=== PATIENT | male | born 1980 | race Caucasian/White ===

== ENCOUNTER 2021-04-12 13:25 | Emergency (ER) | payer BC, OTHER ==
[~2021-04-12] VITALS: Ht 182.9 cm; Wt 80.9 kg
[~2021-04-12 13:25] MED LIST: ATOR1TAB21 PO; METO50TA7 PO; MIRT1TAB PO; OMEP1CAP73 PO; OXAZ30CA2 PO; VENL150T14 PO
[2021-04-12] MEDS ORDERED: MULTIVITAMIN -ADULT INJECTION 10 ML, THIAMINE INJection 100 MG, FOLIC ACID 1 MG in NS 1... IV ONE (14:05)
[2021-04-12] MEDS ORDERED: BOOSTRIX/ADACEL VACCINE (DIPHTH/PERTUSS/ACELL/TETANUS) 0.5ML SYR IM ONE (14:10)
--- NOTE | 2021-04-12 14:50 | REPVR ---
PROCEDURE INFORMATION: Exam: CT Head Without Contrast Exam date and time: 04/12/2021 2:34 PM Age: 40 years old Clinical indication: Injury or trauma; Fall; Blunt trauma (contusions or hematomas) TECHNIQUE: Imaging protocol: Computed tomography of the head without contrast. Radiation optimization: All CT scans at this facility use at least one of these dose optimization techniques: automated exposure control; mA and/or kV adjustment per patient size (includes targeted exams where dose is matched to clinical indication); or iterative reconstruction. COMPARISON: No relevant prior studies available. FINDINGS: Brain: No acute intracranial hemorrhage, cerebral edema, or midline shift. Cerebral ventricles: No hydrocephalus. Paranasal sinuses: There is no acute sinusitis. Mastoid air cells: Visualized mastoid air cells are well aerated. Orbital cavity: Unremarkable as visualized. Bones/joints: No acute fracture. Soft tissues: Unremarkable. IMPRESSION: No acute intracranial abnormality. Electronically signed by: Sam Abad On 04/12/2021 14:50:28 PM
--- NOTE | 2021-04-12 15:05 | REPVR ---
PROCEDURE INFORMATION: Exam: CT Maxillofacial Without Contrast Exam date and time: 04/12/2021 2:34 PM Age: 40 years old Clinical indication: Injury or trauma; Fall; Blunt trauma (contusions or hematomas); Other: Unknown-pt had bruising around the left eye TECHNIQUE: Imaging protocol: Computed tomography images of the face without contrast. Radiation optimization: All CT scans at this facility use at least one of these dose optimization techniques: automated exposure control; mA and/or kV adjustment per patient size (includes targeted exams where dose is matched to clinical indication); or iterative reconstruction. COMPARISON: No relevant prior studies available. FINDINGS: Orbital cavity: Orbits are normal. Globes are unremarkable. Bones/joints: No acute fracture. Paranasal sinuses: Nodular mucosal thickening is present in the right maxillary sinus. The remaining paranasal sinuses are clear. Soft tissues: Minimal left malar and periorbital soft tissue swelling is present. IMPRESSION: No acute fracture or orbital injury Electronically signed by: Sam Abad On 04/12/2021 15:04:49 PM
--- NOTE | 2021-04-12 15:11 | REPVR ---
PROCEDURE INFORMATION: Exam: CT Cervical Spine Without Contrast Exam date and time: 04/12/2021 2:34 PM Age: 40 years old Clinical indication: Injury or trauma; Fall; Blunt trauma TECHNIQUE: Imaging protocol: Computed tomography images of the cervical spine without contrast. Radiation optimization: All CT scans at this facility use at least one of these dose optimization techniques: automated exposure control; mA and/or kV adjustment per patient size (includes targeted exams where dose is matched to clinical indication); or iterative reconstruction. COMPARISON: No relevant prior studies available. FINDINGS: Bones/joints: No acute fracture. Normal alignment. Discs/Spinal canal/Neural foramina: No significant spinal canal stenosis or neural foraminal narrowing. Lungs: Lung apices are clear. Soft tissues: Unremarkable. IMPRESSION: No acute findings. Electronically signed by: Sam Abad On 04/12/2021 15:10:55 PM
[2021-04-12] MEDS ORDERED: LORazepam 2 MG/ML VIAL IV STA (15:14)
[2021-04-12 15:40] LABS: AMPHETAMINES LEVEL URINE NEGATIVE (NEGATIVE); BARBITURATES URINE NEGATIVE (NEGATIVE); BENZODIAZEPINES URINE NEGATIVE (NEGATIVE); CANNABINOIDS URINE NEGATIVE (NEGATIVE); COCAINE METABOLITE URINE NEGATIVE (NEGATIVE); METHADONE URINE NEGATIVE (NEGATIVE); OPIATES URINE NEGATIVE (NEGATIVE); PHENCYCLIDINE URINE NEGATIVE (NEGATIVE)
[2021-04-12 15:50] LABS: ACETAMINOPHEN LEVEL < 2.0 UG/ML (10.0-30.0); ALBUMIN 3.9 GM/DL (3.2-5.2); ALT/SGPT 32 U/L (12-78); BILIRUBIN,DIRECT 0.2 MG/DL (0.0-0.2); BILIRUBIN,TOTAL 0.7 MG/DL (0.2-1.0); BLOOD UREA NITROGEN 9 MG/DL (7-18); CALCIUM LEVEL 8.6 MG/DL (8.5-10.1); CARBON DIOXIDE LEVEL 25 MEQ/L (21-32); CHLORIDE LEVEL 96 MEQ/L (98-107); CREATININE FOR GFR 0.72 MG/DL (0.70-1.30); GLOMERULAR FILTRATION RATE > 60.0 (>60); GLUCOSE, FASTING 133 MG/DL (70-100); POTASSIUM SERUM 3.4 MEQ/L (3.5-5.1); SODIUM LEVEL 133 MEQ/L (136-145); THYROID STIMULATING HORMONE 0.319 uIU/ML (0.358-3.740)
[2021-04-12 16:00] LABS: BASO # 0.1 10^3/uL (0.0-0.2); BASO % 1.2 % (0.0-1.0); EOS # 0.4 10^3/uL (0.0-0.5); EOS % 5.1 % (0.0-3.0); HEMATOCRIT 38.4 % (42.0-52.0); HEMOGLOBIN 14.2 g/dl (13.5-17.5); LYMPH # 2.4 10^3/uL (1.5-5.0); LYMPH % 31.9 % (24.0-44.0); MEAN CORPUSCULAR HEMOGLOBIN 30.5 pg (27.0-33.0); MEAN CORPUSCULAR VOLUME 82.6 fl (80.0-96.0); MONO # 0.5 10^3/uL (0.0-0.8); MONO % 6.9 % (2.0-8.0); NEUTROPHILS # 4.1 10^3/uL (1.5-8.5); NEUTROPHILS % 54.4 % (36.0-66.0); PLATELET COUNT, AUTOMATED 366 10^3/uL (150-450); RED BLOOD COUNT 4.65 10^6/uL (4.30-6.10); WHITE BLOOD COUNT 7.5 10^3/uL (4.0-10.0)
[2021-04-12] MEDS ORDERED: LORazepam 2 MG TAB PO PRN (16:00)
[2021-04-12 17:00] VITALS: BP 116/64
--- NOTE | 2021-04-13 15:45 | ECGEPIP ---
[facility] - ED Test Date: 2021-04-12 Pat Name: KENA CHAN Department: Room: - Gender: Male Lead Care Manager: ZAKI : 1980 Requested By: Jemima Newton Order Number: [id number] Reading MD: Negra Seals Measurements Intervals [place] Rate: 83 P: 9 SD: 154 QRS: -13 QRSD: 106 T: 54 QT: 390 QTc: 458 Interpretive Statements Normal sinus rhythm NSTTW abnormalities low voltage limb decreased rate 09/05/15 Electronically Signed on 04-13-2021 15:44:56 EDT by Negra Seals
== END 2021-04-12 18:02 | disposition left against medical advice (07) ==
LOC: M ED 13:25
DX: F10.129 Alcohol abuse with intoxication, unspecified (principal); Y90.1 Blood alcohol level of 20-39 mg/100 ml; I10 Essential (primary) hypertension; F33.9 Major depressive disorder, recurrent, unspecified; K21.9 Gastro-esophageal reflux disease without esophagitis; I25.2 Old myocardial infarction; F17.210 Nicotine dependence, cigarettes, uncomplicated; Z79.899 Other long term (current) drug therapy
CPT/HCPCS: 70450; 70486; 72125; 80048; 80076; 80143; 80307; 82077; 84443; 85025; 93005; 93041; 96365; 96366; 96375; 99284; J2060; J3411

== ENCOUNTER 2021-04-13 08:20 | Emergency (ER) | payer BC ==
[~2021-04-13] VITALS: Ht 182.9 cm; Wt 81.8 kg
[2021-04-13 09:45] VITALS: BP 126/83
== END 2021-04-13 09:55 | disposition left against medical advice (07) ==
LOC: EDBD 08:20 → M ED 08:20
DX: F10.129 Alcohol abuse with intoxication, unspecified (principal); Y90.1 Blood alcohol level of 20-39 mg/100 ml; I10 Essential (primary) hypertension; F33.9 Major depressive disorder, recurrent, unspecified; Z79.899 Other long term (current) drug therapy; F17.210 Nicotine dependence, cigarettes, uncomplicated

== ENCOUNTER → 2021-12-14 | Outpatient (REF) | payer OTHER | LOC: M LAB REF 16:09 | PROVIDERS: ATTEND Internal Medicine | DX: Z13.89 Encounter for screening for other disorder (principal) ==

== ENCOUNTER 2022-02-19 02:57 | Emergency (ER) | payer OTHER ==
[~2022-02-19] VITALS: Ht 182.9 cm; Wt 82.6 kg
[2022-02-19] MEDS ORDERED: GABA-282 PO (03:09)
[2022-02-19] MEDS ORDERED: ONDA4TAB6 PO (03:09)
[2022-02-19] MEDS ORDERED: SUBO8MIS SL (03:09)
[2022-02-19] MEDS ORDERED: BENA20TA PO (03:09)
[2022-02-19] MEDS ORDERED: ADDE20CA3 PO (03:09)
[2022-02-19] MEDS ORDERED: IBUP-1022 PO (06:06)
[2022-02-19 06:15] VITALS: BP 150/75
[2022-02-19] MEDS ORDERED: IBUPROFEN 800 MG TAB PO ONE (06:35)
== END 2022-02-19 06:46 | disposition home or self-care (01) ==
LOC: M ED 02:57
DX: S42.021A Displaced fracture of shaft of right clavicle, initial encounter for closed fracture (principal); T14.8XXA Other injury of unspecified body region, initial encounter; V19.88XA Pedal cyclist (driver) (passenger) injured in other specified transport accidents, initial encounter; Y92.410 Unspecified street and highway as the place of occurrence of the external cause; I10 Essential (primary) hypertension; K21.9 Gastro-esophageal reflux disease without esophagitis; Z79.899 Other long term (current) drug therapy; Z79.891 Long term (current) use of opiate analgesic

== ENCOUNTER → 2022-03-03 | Outpatient (CLI) | payer OTHER ==
[~2022-03-03] MED LIST changes: +ADDE20CA3 PO; +BENA20TA PO; +GABA-282 PO; +IBUP-1022 PO; +ONDA4TAB6 PO; +SUBO8MIS SL
== END ==
LOC: M SOG 14:11
PROVIDERS: ATTEND Orthopaedic Surgery
DX: S42.024A Nondisplaced fracture of shaft of right clavicle, initial encounter for closed fracture (principal)

== ENCOUNTER → 2022-04-06 | Outpatient (CLI) | payer OTHER | LOC: M SOG 13:14 | PROVIDERS: ATTEND Orthopaedic Surgery | DX: S42.001D Fracture of unspecified part of right clavicle, subsequent encounter for fracture with routine healing (principal) ==

== ENCOUNTER → 2022-05-10 | Outpatient (CLI) | payer OTHER | LOC: M SOG 09:02 | PROVIDERS: ATTEND Orthopaedic Surgery | DX: S42.001D Fracture of unspecified part of right clavicle, subsequent encounter for fracture with routine healing (principal) ==

== ENCOUNTER 2022-11-23 06:48 | Day surgery (SDC) | payer OTHER ==
[~2022-11-23] VITALS: Ht 182.9 cm; Wt 81.6 kg
[~2022-11-23 06:48] MED LIST changes: +ATOR80TA59 PO; +BENA1TAB24 PO; +D-AMPHETAMINE PO; +GABA-283 PO; +METO1TAB32 PO; +NS 1,000 ML IV ONE
[2022-11-23] MEDS ORDERED: LIDOCAINE 2% 100MG/5ML SDV (FOR ANES.) As Ordered ONE (07:12)
[2022-11-23] MEDS ORDERED: propofoL 200 MG/20 ML VIAL As Ordered ONE ×2 (07:12→08:51)
[2022-11-23 09:26] VITALS: BP 138/82
== END 2022-11-23 09:30 | disposition home or self-care (01) ==
LOC: M OPP 06:48
PROVIDERS: ATTEND Internal Medicine Gastroenterology
DX: Z12.11 Encounter for screening for malignant neoplasm of colon (principal); D12.6 Benign neoplasm of colon, unspecified; K64.0 First degree hemorrhoids; K44.9 Diaphragmatic hernia without obstruction or gangrene; K31.89 Other diseases of stomach and duodenum; F17.200 Nicotine dependence, unspecified, uncomplicated; Z79.1 Long term (current) use of non-steroidal anti-inflammatories (NSAID); Z79.2 Long term (current) use of antibiotics; Z79.02 Long term (current) use of antithrombotics/antiplatelets; Z79.891 Long term (current) use of opiate analgesic; Z79.899 Other long term (current) drug therapy

== ENCOUNTER → 2023-05-09 | Outpatient (REF) | payer OTHER ==
[~2023-05-09] MED LIST changes: -GABA-283 PO; +GABA-284 PO; -NS 1,000 ML IV ONE
== END ==
LOC: M LAB REF 16:13
PROVIDERS: ATTEND Internal Medicine
DX: M15.9 Polyosteoarthritis, unspecified (principal)

== ENCOUNTER 2023-12-30 16:19 | Inpatient (IN) | payer OTHER ==
[~2023-12-30] VITALS: Ht 185.4 cm; Wt 78.7 kg
[2023-12-30] MEDS ORDERED: DOXE10CA PO (16:33)
[2023-12-30] MEDS: LORazepam 2 MG/ML 1ML VIAL IV STA (17:15)
[2023-12-30] MEDS: NS 1,000 ML IV ONE ×2 (17:16→19:33)
[2023-12-30] MEDS: ONDANSETRON 4MG 2ML VIAL IV ONE ×2 (17:16→19:33)
[2023-12-30] MEDS ORDERED: ADDE20CA3 PO (17:43)
[2023-12-30] MEDS ORDERED: PILL CUTTER 1 EACH XX PRN (17:55)
[2023-12-30 18:02] LABS: ALBUMIN 4.6 G/DL (3.2-5.2); ALKALINE PHOSPHATASE 133 U/L (46-116); ALT/SGPT 84 U/L (7.0-40); AST/SGOT 72 U/L (<34); BILIRUBIN,DIRECT 0.3 MG/DL (<0.4); BILIRUBIN,TOTAL 0.7 MG/DL (0.3-1.2); BLOOD UREA NITROGEN 17 MG/DL (9-23); CALCIUM LEVEL 8.9 MG/DL (8.5-10.1); CARBON DIOXIDE LEVEL 18 MMOL/L (20-31); CHLORIDE LEVEL 100 MMOL/L (98-107); CREATININE FOR GFR 0.93 MG/DL (0.70-1.30); GLOMERULAR FILTRATION RATE > 60.0 (>60); GLUCOSE, FASTING 120 MG/DL (60-100); POTASSIUM SERUM 4.3 MMOL/L (3.5-5.1); SODIUM LEVEL 134 MMOL/L (136-145); TOTAL PROTEIN 7.5 G/DL (5.7-8.2)
[2023-12-30 18:04] LABS: INR 1.02; PROTHROMBIN TIME 13.1 SECONDS (12.5-14.5)
[2023-12-30] MEDS: FOLIC ACID 1MG TAB PO SCH (18:09)
[2023-12-30] MEDS: LORazepam 2 MG TAB PO PRN (18:09)
[2023-12-30] MEDS: METOPROLOL SUCC *XL* 25MG TAB (TopROL *XL*) PO ONE (18:10)
[2023-12-30] MEDS: MULTIVITAMINS/MINERALS THERAP 1 TAB PO SCH (18:37)
[2023-12-30] MEDS: BENAZEPRIL 20 MG TAB PO ONE (18:38)
[2023-12-30 18:47] LABS: BASO # 0.1 10^3/uL (0.0-0.2); BASO % 0.4 % (0.0-1.0); HEMATOCRIT 44.4 % (42.0-52.0); HEMOGLOBIN 16.5 g/dl (13.5-17.5); LYMPH # 1.6 10^3/uL (1.5-5.0); LYMPH % 10.9 % (24.0-44.0); MEAN CORPUSCULAR HEMOGLOBIN 32.5 pg (27.0-33.0); MEAN CORPUSCULAR VOLUME 87.6 fl (80.0-96.0); MONO # 0.5 10^3/uL (0.0-0.8); MONO % 3.2 % (2.0-8.0); NEUTROPHILS # 12.5 10^3/uL (1.5-8.5); NEUTROPHILS % 85.1 % (36.0-66.0); PLATELET COUNT, AUTOMATED 375 10^3/uL (150-450); RED BLOOD COUNT 5.07 10^6/uL (4.30-6.10); WHITE BLOOD COUNT 14.7 10^3/uL (4.0-10.0)
[2023-12-30 18:48] LABS: MEAN CORPUSCULAR HGB CONC 37.2 g/dl (32.0-36.5)
[2023-12-30] MEDS: BOOSTRIX VACCINE (TETANUS/DIPHTH/ACEL. PERTUSSIS) 0.5ML SYR IM.IMMUN ONE (18:51)
[2023-12-30] MEDS ORDERED: ADDE20TA PO (19:42)
[2023-12-30] MEDS ORDERED: AMPH1CAP16 PO (19:42)
[2023-12-30] MEDS ORDERED: IBUP200C25 PO (19:48)
[2023-12-30] MEDS ORDERED: HOME MED LIST COMPLETE! XX SCH (19:50)
[2023-12-30] MEDS ORDERED: THIAMINE 100 MG TAB PO SCH (21:00)
[2023-12-30 21:03] LABS: AMPHETAMINES LEVEL URINE NEGATIVE (NEGATIVE)
[2023-12-30 21:04] LABS: BARBITURATES URINE NEGATIVE (NEGATIVE); BENZODIAZEPINES URINE NEGATIVE (NEGATIVE); CANNABINOIDS URINE NEGATIVE (NEGATIVE); COCAINE METABOLITE URINE NEGATIVE (NEGATIVE); METHADONE URINE NEGATIVE (NEGATIVE); OPIATES URINE NEGATIVE (NEGATIVE); PHENCYCLIDINE URINE NEGATIVE (NEGATIVE)
[2023-12-30 22:52] VITALS: BP 97/56; TEMP 98.9; O2SAT 96
[2023-12-30] MEDS: ONDANSETRON 4MG ORAL DISINTEGRATING TAB PO PRN (23:08)
[2023-12-30] MEDS: ATORVASTATIN 20 MG TAB PO SCH (23:21)
[2023-12-30] MEDS: GABAPENTIN 400MG CAP PO ONE (23:21)
[2023-12-30] MEDS: THIAMINE 200MG 2ML VIAL IM SCH (23:29)
[2023-12-30] MEDS: DOXEPIN 25 MG CAP PO SCH (23:30)
[2023-12-31 03:35] VITALS: BP 110/60; TEMP 98.4; O2SAT 95
[2023-12-31 06:23] LABS: BLOOD UREA NITROGEN 17 MG/DL (9-23); CALCIUM LEVEL 8.2 MG/DL (8.5-10.1); CARBON DIOXIDE LEVEL 25 MMOL/L (20-31); CHLORIDE LEVEL 104 MMOL/L (98-107); CREATININE FOR GFR 0.86 MG/DL (0.70-1.30); GLOMERULAR FILTRATION RATE > 60.0 (>60); GLUCOSE, FASTING 80 MG/DL (60-100); SODIUM LEVEL 137 MMOL/L (136-145)
[2023-12-31 07:37] VITALS: BP 121/68; TEMP 98.9; O2SAT 94
[2023-12-31 08:25] VITALS: BP 121/68
[2023-12-31] MEDS: GABAPENTIN 400MG CAP PO SCH (08:25)
[2023-12-31] MEDS: BENAZEPRIL 5MG TAB PO SCH (08:25)
[2023-12-31] MEDS: FOLIC ACID 1MG TAB PO SCH (08:26)
[2023-12-31] MEDS: MULTIVITAMINS/MINERALS THERAP 1 TAB PO SCH (08:26)
[2023-12-31] MEDS: METOPROLOL SUCC *XL* 25MG TAB (TopROL *XL*) PO SCH (08:26)
[2023-12-31] MEDS: OMEPRAZOLE 20MG CAP PO SCH (08:26)
[2023-12-31 09:39] LABS: BASO # 0.1 10^3/uL (0.0-0.2); BASO % 0.8 % (0.0-1.0); EOS % 0.2 % (0.0-3.0); HEMATOCRIT 37.5 % (42.0-52.0); LYMPH # 1.5 10^3/uL (1.5-5.0); LYMPH % 16.9 % (24.0-44.0); MEAN CORPUSCULAR HEMOGLOBIN 32.5 pg (27.0-33.0); MEAN CORPUSCULAR HGB CONC 36.5 g/dl (32.0-36.5); MEAN CORPUSCULAR VOLUME 89.1 fl (80.0-96.0); MONO # 0.9 10^3/uL (0.0-0.8); MONO % 10.3 % (2.0-8.0); NEUTROPHILS # 6.4 10^3/uL (1.5-8.5); NEUTROPHILS % 71.4 % (36.0-66.0); RED BLOOD COUNT 4.21 10^6/uL (4.30-6.10)
[2023-12-31 09:40] LABS: HEMOGLOBIN 13.7 g/dl (13.5-17.5); PLATELET COUNT, AUTOMATED 273 10^3/uL (150-450)
[2023-12-31] MEDS ORDERED: OXAZEPAM 10MG CAP PO ONE (09:40)
[2023-12-31 09:44] LABS: INR 1.02; PARTIAL THROMBOPLASTIN TIME 24.2 SECONDS (24.8-34.2); PROTHROMBIN TIME 13.1 SECONDS (12.5-14.5)
[2023-12-31 10:09] LABS: HEPATITIS B SURFACE ANTIGEN NEGATIVE (NEGATIVE)
[2023-12-31] MEDS ORDERED: FOLI1TAB11 PO (10:17)
[2023-12-31] MEDS ORDERED: THIA100T7 PO (10:17)
[2023-12-31] MEDS ORDERED: MULT-90 PO (10:17)
[2023-12-31 10:30] LABS: HEPATITIS B CORE ANTIBODY IGM NEGATIVE (NEGATIVE); HEPATITIS C VIRUS ABY INDEX < 0.02 INDEX (<0.8)
[2023-12-31 10:32] LABS: ALBUMIN 3.6 G/DL (3.2-5.2); ALKALINE PHOSPHATASE 99 U/L (46-116); ALT/SGPT 60 U/L (7.0-40); AST/SGOT 63 U/L (<34); BILIRUBIN,TOTAL 1.7 MG/DL (0.3-1.2); BLOOD UREA NITROGEN 17 MG/DL (9-23); CALCIUM LEVEL 8.5 MG/DL (8.5-10.1); CARBON DIOXIDE LEVEL 27 MMOL/L (20-31); CHLORIDE LEVEL 103 MMOL/L (98-107); CREATININE FOR GFR 0.82 MG/DL (0.70-1.30); GLOMERULAR FILTRATION RATE > 60.0 (>60); GLUCOSE, FASTING 136 MG/DL (60-100); POTASSIUM SERUM 3.8 MMOL/L (3.5-5.1); SODIUM LEVEL 136 MMOL/L (136-145); TOTAL PROTEIN 6.1 G/DL (5.7-8.2)
[2024-01-03] MEDS ORDERED: GABAPENTIN 300 MG CAP PO SCH (09:00)
== END 2023-12-31 10:34 | disposition left against medical advice (07) | DRG 52 ==
LOC: EEVIPCON 16:19 → M ED 16:19 → EEVIPCON 21:14 → M ED INP 21:14 → M PCU 22:50
PROVIDERS: ADMIT Internal Medicine; ATTEND Internal Medicine
DX: G92.9 Unspecified toxic encephalopathy (principal); F10.221 Alcohol dependence with intoxication delirium; S01.112A Laceration without foreign body of left eyelid and periocular area, initial encounter; I25.10 Atherosclerotic heart disease of native coronary artery without angina pectoris; F17.210 Nicotine dependence, cigarettes, uncomplicated; I10 Essential (primary) hypertension; Z79.899 Other long term (current) drug therapy

== ENCOUNTER → 2024-01-02 | Outpatient (REF) | payer OTHER ==
[~2024-01-02] MED LIST changes: +ADDE20TA PO; +AMPH1CAP16 PO; +DOXE10CA PO; +FOLI1TAB11 PO; +IBUP200C25 PO; +MULT-90 PO; +THIA100T7 PO
[2024-01-02 12:07] LABS: INR 0.91
== END ==
LOC: M LAB REF 11:17
PROVIDERS: ATTEND Internal Medicine
DX: I25.10 Atherosclerotic heart disease of native coronary artery without angina pectoris (principal); Z95.5 Presence of coronary angioplasty implant and graft; F33.41 Major depressive disorder, recurrent, in partial remission